=== PATIENT | female | born 1955 | race Hispanic/Latino ===

== ENCOUNTER → 2023-12-07 | Outpatient (CLI) | payer OTHER, MEDICARE | END | disposition home or self-care (01) | LOC: RAH 13:34 | PROVIDERS: ATTEND Family Medicine | DX: I34.81 Nonrheumatic mitral (valve) annulus calcification (principal); R06.09 Other forms of dyspnea; R60.0 Localized edema | CPT/HCPCS: 93306 ==

== ENCOUNTER → 2023-12-17 | Outpatient (CLI) | payer OTHER, MEDICARE ==
[2023-12-17 13:57] LABS: BASOPHILS # (AUTO) 0.03 K/uL (0.00-0.20); BASOPHILS % (AUTO) 0.4 % (0.0-5.0); EOSINOPHILS # (AUTO) 0.14 K/uL (0.00-0.70); EOSINOPHILS % (AUTO) 1.7 % (0.0-8.0); HEMATOCRIT 37.5 % (36-48); IMMATURE GRANULOCYTE ABSOLUTE 0.03 K/uL (0-1); LYMPHOCYTES # (AUTO) 2.8 K/uL (1.0-4.8); LYMPHOCYTES % (AUTO) 34.9 % (21.0-51.0); MEAN CORPUSCULAR HEMOGLOBIN 27.7 pg (27.0-33.0); MEAN CORPUSCULAR HGB CONC 30.9 g/dL (32.0-36.0); MEAN CORPUSCULAR VOLUME 89.5 fL (79-99); MONOCYTES # (AUTO) 0.6 K/uL (0.1-1.0); NEUTROPHILS # (AUTO) 4.5 K/uL (1.8-7.7); NEUTROPHILS % (AUTO) 55.6 % (40.0-77.0); PLATELET COUNT (AUTO) 229 K/uL (130-400); RED BLOOD CELL COUNT(AUTO) 4.19 MIL/uL (4.00-5.50); RED CELL DISTRIBUTION WIDTH 13.7 % (11.0-15.5)
[2023-12-17 14:22] LABS: ALBUMIN 3.3 g/dL (3.5-5.0); BILIRUBIN,TOTAL 0.3 mg/dL (0.2-1.0); CREATININE 1.4 mg/dL (0.5-1.0); POTASSIUM 4.5 mmol/L (3.5-5.1)
== END | disposition home or self-care (01) ==
LOC: LAB 13:05
PROVIDERS: ATTEND Internal Medicine Gastroenterology
DX: R10.12 Left upper quadrant pain (principal)
CPT/HCPCS: 36415; 80053; 82150; 83690; 85025

== ENCOUNTER 2023-12-21 10:51 | Observation (INO) | payer OTHER, MEDICARE ==
[~2023-12-21] VITALS: Ht 160 cm; Wt 124.7 kg
[2023-12-21] VITALS (22 sets, daily range): BP systolic 103–151; BP diastolic 35–117; PULSE 68–93; RESP 16–20; TEMP 97.1–98.4; O2SAT 95–98
[~2023-12-21 10:51] MED LIST: 0.9%NACL 1000ML 1,000 ML IV ONE; HUMLIS7525 SQ
[2023-12-21] MEDS ORDERED: OMEP40CA21 PO ×2 (11:47)
[2023-12-21] MEDS ORDERED: LOSA1TAB42 PO ×2 (11:47)
[2023-12-21] MEDS ORDERED: GABA300C PO ×2 (11:47)
[2023-12-21] MEDS ORDERED: ROSUVASTATIN PO ×2 (11:47)
[2023-12-21] MEDS ORDERED: CARB1TAB42 PO ×2 (11:47)
[2023-12-21] MEDS ORDERED: GLIP5TAB15 PO ×2 (11:47)
[2023-12-21] MEDS ORDERED: EMPA1TAB7 PO ×2 (11:54)
[2023-12-21] MEDS ORDERED: MIRA25TA PO ×2 (11:54)
[2023-12-21] MEDS ORDERED: RASAGILINE PO ×2 (11:54)
[2023-12-21] MEDS: LACTULOSE 20 GM/30 ML UDCUP PO ONE ×2 (15:24→15:48)
[2023-12-21] MEDS: PEG 3350/NA SULF,BICARB,CL/KCL 4000 ML SOLN PO ONE (15:24)
[2023-12-21] MEDS: 0.9%NACL 1000ML 1,000 ML IV SCH (15:24)
[2023-12-21] MEDS: BisaCODYL 5 MG TABLET.DR PO ONE ×2 (15:25→22:13)
[2023-12-21] MEDS: CARBIDOPA-LEVODOPA 25-100 TAB PO SCH (16:25)
[2023-12-21] MEDS: glipiZIDE 5MG TABLET PO SCH (16:25)
[2023-12-21] MEDS: METFORMIN HCL PO SCH (17:00)
[2023-12-21] MEDS: EMPAGLIFLOZIN PO SCH (17:00)
[2023-12-21] MEDS: BENZOCAINE/MENTH/CETYLPYRD CL 1 EACH LOZENGE MM PRN (18:39)
[2023-12-21 20:05] LABS: BASOPHILS # (AUTO) 0.03 K/uL (0.00-0.20); BASOPHILS % (AUTO) 0.3 % (0.0-5.0); EOSINOPHILS # (AUTO) 0.05 K/uL (0.00-0.70); EOSINOPHILS % (AUTO) 0.5 % (0.0-8.0); HEMATOCRIT 34.2 % (36-48); IMMATURE GRANULOCYTE ABSOLUTE 0.03 K/uL (0-1); LYMPHOCYTES % (AUTO) 18.7 % (21.0-51.0); MEAN CORPUSCULAR HEMOGLOBIN 28.1 pg (27.0-33.0); MEAN CORPUSCULAR HGB CONC 31.9 g/dL (32.0-36.0); MEAN CORPUSCULAR VOLUME 88.1 fL (79-99); MONOCYTES # (AUTO) 0.7 K/uL (0.1-1.0); MONOCYTES % (AUTO) 6.2 % (3.0-13.0); NEUTROPHILS # (AUTO) 7.9 K/uL (1.8-7.7); PLATELET COUNT (AUTO) 236 K/uL (130-400); RED BLOOD CELL COUNT(AUTO) 3.88 MIL/uL (4.00-5.50); RED CELL DISTRIBUTION WIDTH 13.8 % (11.0-15.5); WHITE BLOOD COUNT (AUTO) 10.6 K/uL (4.8-10.8)
[2023-12-21 20:21] LABS: ALBUMIN 3.4 g/dL (3.5-5.0); BILIRUBIN,TOTAL 0.4 mg/dL (0.2-1.0); CREATININE 1.2 mg/dL (0.5-1.0); POTASSIUM 4.1 mmol/L (3.5-5.1); TOTAL PROTEIN, SERUM 7.8 g/dL (6.0-8.3)
[2023-12-21] MEDS: atorVAStatin 40 MG TABLET PO SCH (22:14)
[2023-12-21] MEDS: GABAPENTIN 300 MG CAPSULE PO SCH (22:14)
[2023-12-22] VITALS (18 sets, daily range): BP systolic 116–154; BP diastolic 43–82; PULSE 50–88; RESP 15–20; TEMP 97.2–98.2; O2SAT 93
[2023-12-22] MEDS: hydroCHLOROthiazide 25 MG TABLET PO SCH (09:00)
[2023-12-22] MEDS: LoSARTan 100 MG TABLET PO SCH (09:00)
[2023-12-22] MEDS: RASAGILINE 0.5 MG PO SCH (09:00)
[2023-12-22] MEDS: PANTOPrazole 40 MG TAB DR PO SCH ×2 (09:00)
[2023-12-22] MEDS: ***HM***(Mirabegron (Myrbetriq) 25 MG) PO SCH (09:00)
[2023-12-22] MEDS ORDERED: ketaMINE 50MG/ML SYRINGE 50 MG/ML DISP.SYRIN ONE (13:34)
[2023-12-22] MEDS ORDERED: proPOFol 10 MG/ML 20ML VIAL IV ONE (13:34)
[2023-12-22] MEDS ORDERED: doCUSate SODIUM 100 MG CAP PO ONE (21:00)
[2023-12-23] MEDS ORDERED: polyETHYLene GLYCol 3350 17 GM POWD.PACK PO SCH (09:00)
== END 2023-12-22 18:30 | disposition home or self-care (01) ==
LOC: SUH 10:51 → DAH 10:51 → DAHIP 10:52 → SUH 10:52 → 4DH 13:50
PROVIDERS: ADMIT Internal Medicine Infectious Disease; ATTEND Internal Medicine Infectious Disease
DX: K21.00 Gastro-esophageal reflux disease with esophagitis, without bleeding (principal); D12.0 Benign neoplasm of cecum; R11.2 Nausea with vomiting, unspecified; R13.10 Dysphagia, unspecified; E11.9 Type 2 diabetes mellitus without complications; D64.9 Anemia, unspecified; G20.A1 Parkinson's disease without dyskinesia, without mention of fluctuations; I10 Essential (primary) hypertension; K44.9 Diaphragmatic hernia without obstruction or gangrene; E78.5 Hyperlipidemia, unspecified; E66.9 Obesity, unspecified; K64.0 First degree hemorrhoids; K59.00 Constipation, unspecified; R63.4 Abnormal weight loss; Z79.899 Other long term (current) drug therapy; Z98.890 Other specified postprocedural states
CPT/HCPCS: 96360; 96361 ×2; 80053; 85025; 82948 ×6; 36415; 88305 ×2; 88312; 43239; 43249; 45380; G0378 ×29; J7030 ×2; C1726; A4620 ×2; A4215 ×3; A4223 ×2; A4657 ×3; A7002; A4222 ×2; A4221; A4663; A4606; J2704; J3490

== ENCOUNTER → 2023-12-29 | Outpatient (CLI) | payer OTHER, MEDICARE ==
[~2023-12-29] MED LIST changes: -0.9%NACL 1000ML 1,000 ML IV ONE; +CARB1TAB42 PO; +EMPA1TAB7 PO; +GABA300C PO; +GLIP5TAB15 PO; +LIDOCAINE PF 100MG/5ML (2%) SYRINGE 5ML ONE; +LOSA1TAB42 PO; +MIRA25TA PO; +OMEP40CA21 PO; +RASAGILINE PO; +ROSUVASTATIN PO; +phenylEPHRINE HCL 10 MG/ML 1ML VIAL IV ONE; +proPOFol 10 MG/ML 20ML VIAL IV ONE
== END | disposition home or self-care (01) ==
LOC: RAH 11:39
PROVIDERS: ATTEND Family Medicine
DX: K22.4 Dyskinesia of esophagus (principal); R13.10 Dysphagia, unspecified; G20.B1 Parkinson's disease with dyskinesia, without mention of fluctuations
CPT/HCPCS: 74230; 92611; J2003; J2371; J2704; J3490

== ENCOUNTER → 2024-03-01 | Outpatient (CLI) | payer OTHER, MEDICARE ==
[~2024-03-01] MED LIST changes: -LIDOCAINE PF 100MG/5ML (2%) SYRINGE 5ML ONE; -phenylEPHRINE HCL 10 MG/ML 1ML VIAL IV ONE; -proPOFol 10 MG/ML 20ML VIAL IV ONE
== END | disposition home or self-care (01) ==
LOC: RAH 09:59
PROVIDERS: ATTEND Family Medicine
DX: Z12.31 Encounter for screening mammogram for malignant neoplasm of breast (principal)
CPT/HCPCS: 77067